=== PATIENT | female | born 1960 | race Two or more races ===

== ENCOUNTER 2016-04-02 14:25 | Inpatient (IN) | payer OTHER ==
[~2016-04-02] VITALS: Ht 149.9 cm; Wt 82.3 kg
[2016-04-02 15:00] LABS: Urine Bilirubin Negative (Negative); Urine Blood TRACE /uL (Negative); Urine Color Yellow (Yellow); Urine Glucose 4+ mg/dL (Normal); Urine Ketone 3+ (Negative); Urine Nitrite Negative (Negative); Urine RBC 5 /hpf (0 - 4); Urine Squamous Epithelial Cell FEW /hpf (<5); Urine Urobilinogen Normal (Negative); Urine pH 5.5 (5.0-8.0)
[2016-04-02 15:13] LABS: Hematocrit 34.3 % (36.0-46.0); Mean Corpuscular Hemoglobin 27.7 pg (28.0-32.0); Mean Corpuscular Volume 86.5 fL (80.0-100.0); Mean Platelet Volume 9.9 fL (7.4-10.4); Platelet Count (auto) 257 10^3/uL (140-450); Red Cell Distribution Width 14.2 % (11.6-16.0); SUSPECT VIEW TRANSMISSION; White Blood Cell 16.9 10^3/uL (4.4-10.8)
[2016-04-02 15:16] LABS: Metamyelocytes % 0; Myelocytes % 0; Promyelocytes % 0; Reactive Lymphocytes 0
[2016-04-02 15:31] LABS: Albumin 3.1 g/dL (3.4-5.0); Anion Gap 17 (5-15); Aspartate Aminotransferase 11 U/L (15-37); Blood Urea Nitrogen 14 mg/dL (7-18); Calcium 9.2 mg/dL (8.5-10.1); Carbon Dioxide 16 mmol/L (21-32); Chloride 99 mmol/L (98-107); GFR African American 68 mL/min; GFR Non-African American 56 mL/min; Glucose 246 mg/dL (74-106); Potassium 3.7 mmol/L (3.5-5.1); Sodium 132 mmol/L (136-145)
[2016-04-02 15:35] LABS: Alkaline Phosphatase 108 U/L (45-117); Bilirubin, Total 1.4 mg/dL (0.2-1.0); Total Protein 8.2 g/dL (6.4-8.2)
[2016-04-02 16:49] LABS: Platelet Estimate Adequate
[2016-04-02 16:50] LABS: Giant Platelets Few; RBC Morphology Normal
[2016-04-02] MEDS ORDERED: ONDANSETRON HCL 4 MG/2 ML VIAL IV ONE (17:15)
[2016-04-02] MEDS ORDERED: MORPHINE SULFATE 4 MG/ML SYRG IV ONE (17:15)
[2016-04-02] MEDS ORDERED: metroNIDAZOLE 500MG/100ML 100 ML IV ONE (17:15)
[2016-04-02] MEDS ORDERED: NITROFURANTOIN (MONO) 100 mg CAP PO ONE (17:15)
[2016-04-02] MEDS ORDERED: PIPERACILLIN-TAZOB 3.375GM 100 ML IV ONE (17:15)
[2016-04-02] MEDS ORDERED: MORPHINE SULF INJ 2 MG/ML SYRINGE 1ML IV PRN ×2 (18:00)
[2016-04-02] MEDS ORDERED: LORazepam 0.5 MG TAB PO PRN (18:00)
[2016-04-02] MEDS ORDERED: NITROGLYCERIN 0.4 MG SL TAB SL PRN (18:00)
[2016-04-02] MEDS ORDERED: PROMETHAZINE HCL 25 MG/ML 1ML IV PRN (18:00)
[2016-04-02] MEDS ORDERED: DEXTROSE (50%) 50ML SYRG IV PRN (18:00)
[2016-04-02 18:18] LABS: INR 1.05 (0.9-1.15); Prothrombin Time 10.8 sec (9.37-12.3)
[2016-04-02] MEDS: SODIUM CHLORIDE 0.9% 1,000 ML IV SCH (19:30)
[2016-04-02] MEDS: PIPERACILLIN-TAZOB 3.375GM 100 ML IV SCH ×2 (19:32→23:09)
[2016-04-02] MEDS: InsuLIN REG 1unit/0.01ml Soln (100units/ml) SC SCH (19:42)
[2016-04-02] MEDS: ACCU-CHEK COMFORT CURVE STRIP VI SCH (19:44)
[2016-04-02] MEDS: FAMOTIDINE 20 MG TAB PO SCH (21:53)
[2016-04-03] VITALS (8 sets, daily range): BP systolic 114–127; BP diastolic 59–76
[2016-04-03] MEDS: ACCU-CHEK COMFORT CURVE STRIP VI SCH ×6 (00:01→20:39)
[2016-04-03] MEDS: InsuLIN REG 1unit/0.01ml Soln (100units/ml) SC SCH ×6 (00:21→20:46)
[2016-04-03] MEDS: SODIUM CHLORIDE 0.9% 1,000 ML IV SCH ×3 (01:33→17:43)
[2016-04-03] MEDS: PIPERACILLIN-TAZOB 3.375GM 100 ML IV SCH ×3 (05:03→17:44)
[2016-04-03 06:26] LABS: Basophils # (auto) 0 uL; Basophils % (auto) 0.2 % (0.0-2.0); Eosinophils # (auto) 0 uL; Eosinophils % (auto) 0.2 % (0.0-7.0); Hematocrit 30.4 % (36.0-46.0); Hemoglobin 9.6 g/dL (12.2-16.2); Lymphocytes # (auto) 1.2 uL; Lymphocytes % (auto) 9.6 % (10.0-50.0); Mean Corpuscular Hemoglobin 27.3 pg (28.0-32.0); Mean Corpuscular Hgb Conc. 31.5 g/dL (32.0-36.0); Mean Corpuscular Volume 86.6 fL (80.0-100.0); Mean Platelet Volume 10.2 fL (7.4-10.4); Monocytes # (auto) 1.3 uL; Monocytes % (auto) 10.9 % (0.0-12.0); Neutrophils # (auto) 9.5 uL; Neutrophils % (auto) 79.1 % (37.0-80.0); Platelet Count (auto) 221 10^3/uL (140-450); Red Cell Distribution Width 14.3 % (11.6-16.0)
[2016-04-03 06:59] LABS: Albumin 2.6 g/dL (3.4-5.0); Bilirubin, Total 1.1 mg/dL (0.2-1.0); Calcium 8.9 mg/dL (8.5-10.1); Potassium 3.9 mmol/L (3.5-5.1); Total Protein 7.4 g/dL (6.4-8.2)
[2016-04-03] MEDS ORDERED: MIDAZOLAM HCL 1MG/1ML-2 ML VIAL ONE (08:00)
[2016-04-03] MEDS ORDERED: fentaNYL CITRATE 100 MCG/2 ML VL ONE (08:04)
[2016-04-03] MEDS ORDERED: METOCLOPRAMIDE HCL 5MG/ml INJ 2ml VIAL ONE (08:21)
[2016-04-03] MEDS ORDERED: PROPOFOL 10 MG/ML 20 ML IV ONE (08:21)
[2016-04-03] MEDS ORDERED: DEXAMETHASONE SOD PHOS 10MG/1ML VIAL INJ ONE (08:21)
[2016-04-03] MEDS ORDERED: LIDOCAINE HCL 2 %PF INJ 10ML AMP IJ ONE (08:21)
[2016-04-03] MEDS ORDERED: ONDANSETRON HCL 4 MG/2 ML VIAL ONE (08:21)
[2016-04-03] MEDS ORDERED: ePHEDrine SULFATE 50 MG/ML AMP IV PRN (09:00)
[2016-04-03] MEDS ORDERED: HYDROmorphone HCL 2 MG/ML VL IV PRN (09:00)
[2016-04-03] MEDS ORDERED: PROMETHAZINE HCL 25 MG/ML 1ML IM ONE (09:00)
[2016-04-03] MEDS ORDERED: hydrALAZINE HCL 20 MG/ML VL IV PRN (09:00)
[2016-04-03] MEDS ORDERED: FLUMAZENIL 0.1 MG/ML INJ 10ML MDV IV ONE (09:00)
[2016-04-03] MEDS ORDERED: METOCLOPRAMIDE HCL 5MG/ml INJ 2ml VIAL IV ONE (09:00)
[2016-04-03] MEDS ORDERED: NALOXONE HCL 0.4 MG/ML VIAL IV PRN (09:00)
[2016-04-03] MEDS ORDERED: ONDANSETRON HCL 4 MG/2 ML VIAL IV ONE (09:00)
[2016-04-03] MEDS ORDERED: KETOROLAC TROMETH 30 MG/ML 1ML VIAL IV ONE (09:00)
[2016-04-03] MEDS ORDERED: LABETALOL HCL 5 MG/ML 4ML SYRINGE IV PRN (09:00)
[2016-04-03] MEDS: FAMOTIDINE 20 MG TAB PO SCH ×2 (10:07→21:57)
[2016-04-03] MEDS: Boost Glucose Control 8 Ounces PO SCH (18:06)
[2016-04-03] MEDS ORDERED: DEXTROSE (50%) 50ML SYRG IV PRN ×3 (21:00)
[2016-04-04] MEDS ORDERED: InsuLIN REG 1unit/0.01ml Soln (100units/ml) SC SCH
[2016-04-04] MEDS ORDERED: ACCU-CHEK COMFORT CURVE STRIP VI SCH
[2016-04-04] MEDS: PIPERACILLIN-TAZOB 3.375GM 100 ML IV SCH ×4 (00:13→17:36)
[2016-04-04] MEDS: ACCU-CHEK COMFORT CURVE STRIP VI SCH ×8 (00:13→20:00)
[2016-04-04] MEDS: InsuLIN REG 1unit/0.01ml Soln (100units/ml) SC SCH ×8 (00:15→20:48)
[2016-04-04] MEDS: SODIUM CHLORIDE 0.9% 1,000 ML IV SCH ×4 (00:16→23:35)
[2016-04-04] MEDS: ACETAMINOPHEN 500 MG TAB PO PRN (04:15)
[2016-04-04 05:00] VITALS: BP 128/72
[2016-04-04 05:54] LABS: Basophils # (auto) 0 uL; Basophils % (auto) 0.1 % (0.0-2.0); Eosinophils # (auto) 0 uL; Hematocrit 30.3 % (36.0-46.0); Hemoglobin 9.5 g/dL (12.2-16.2); Lymphocytes # (auto) 0.8 uL; Lymphocytes % (auto) 7.3 % (10.0-50.0); Mean Corpuscular Hemoglobin 27.3 pg (28.0-32.0); Mean Corpuscular Hgb Conc. 31.4 g/dL (32.0-36.0); Mean Corpuscular Volume 87.1 fL (80.0-100.0); Mean Platelet Volume 10.5 fL (7.4-10.4); Monocytes # (auto) 0.9 uL; Monocytes % (auto) 7.6 % (0.0-12.0); Neutrophils # (auto) 9.7 uL; Platelet Count (auto) 253 10^3/uL (140-450); Red Cell Distribution Width 14.2 % (11.6-16.0); SUSPECT VIEW TRANSMISSION; White Blood Cell 11.5 10^3/uL (4.4-10.8)
[2016-04-04 06:06] LABS: Albumin 2.3 g/dL (3.4-5.0); BUN/Creatinine Ratio 27.8; Calcium 9.1 mg/dL (8.5-10.1); Potassium 3.9 mmol/L (3.5-5.1)
[2016-04-04 06:09] LABS: Bilirubin, Total 0.5 mg/dL (0.2-1.0); Total Protein 7.4 g/dL (6.4-8.2)
[2016-04-04 08:00] VITALS: BP 126/67
[2016-04-04] MEDS: Boost Glucose Control 8 Ounces PO SCH ×3 (08:26→17:37)
[2016-04-04] MEDS: FAMOTIDINE 20 MG TAB PO SCH ×2 (08:33→22:00)
[2016-04-04 08:36] VITALS: BP 126/67
[2016-04-04] MEDS ORDERED: DAPA1TAB7 PO (08:38)
[2016-04-04] MEDS ORDERED: PRAV20TA3 PO (08:38)
[2016-04-04] MEDS ORDERED: BENA40TA2 PO (08:38)
[2016-04-04] MEDS ORDERED: OMEG1CAP59 PO (08:38)
[2016-04-04] MEDS ORDERED: AMLO10TA2 PO (08:38)
[2016-04-04] MEDS ORDERED: INSLANTI SC (08:39)
[2016-04-04 13:00] VITALS: BP 122/72
[2016-04-04] MEDS ORDERED: LACTULOSE 20Gm/30ML SOLN PO PRN (15:45)
[2016-04-04 16:37] VITALS: BP 137/71
[2016-04-04] MEDS: metFORMIN HYDROCHLORIDE 500 MG TAB PO SCH (17:36)
[2016-04-04 22:00] VITALS: BP 117/73
[2016-04-04] MEDS: INSULIN DETEMIR(LEVEMIR) 1unit/0.01ml Soln (100units/ml) SC SCH (22:00)
[2016-04-04] MEDS: PRAVASTATIN SODIUM 20 MG TAB PO SCH (22:00)
[2016-04-05] MEDS: PIPERACILLIN-TAZOB 3.375GM 100 ML IV SCH ×3 (00:33→11:38)
[2016-04-05] MEDS: InsuLIN REG 1unit/0.01ml Soln (100units/ml) SC SCH ×6 (00:42→23:45)
[2016-04-05] MEDS: ACCU-CHEK COMFORT CURVE STRIP VI SCH ×7 (04:00→23:50)
[2016-04-05 05:00] VITALS: BP 125/83
[2016-04-05 06:17] LABS: Basophils # (auto) 0 uL; Basophils % (auto) 0.1 % (0.0-2.0); Eosinophils # (auto) 0.1 uL; Eosinophils % (auto) 0.6 % (0.0-7.0); Hematocrit 29.5 % (36.0-46.0); Hemoglobin 9.8 g/dL (12.2-16.2); Lymphocytes # (auto) 2.6 uL; Lymphocytes % (auto) 21.5 % (10.0-50.0); Mean Corpuscular Hemoglobin 28.3 pg (28.0-32.0); Mean Corpuscular Hgb Conc. 33.3 g/dL (32.0-36.0); Mean Corpuscular Volume 84.9 fL (80.0-100.0); Mean Platelet Volume 10.1 fL (7.4-10.4); Monocytes % (auto) 8.2 % (0.0-12.0); Neutrophils # (auto) 8.5 uL; Neutrophils % (auto) 69.6 % (37.0-80.0); Platelet Count (auto) 278 10^3/uL (140-450); Red Cell Distribution Width 14.5 % (11.6-16.0); White Blood Cell 12.2 10^3/uL (4.4-10.8)
[2016-04-05 06:49] LABS: Potassium 3.1 mmol/L (3.5-5.1)
[2016-04-05 06:53] LABS: Albumin 2.2 g/dL (3.4-5.0); BUN/Creatinine Ratio 33.7; Calcium 8.5 mg/dL (8.5-10.1)
[2016-04-05 06:56] LABS: Bilirubin, Total 0.3 mg/dL (0.2-1.0); Total Protein 6.9 g/dL (6.4-8.2)
[2016-04-05] MEDS: SODIUM CHLORIDE 0.9% 1,000 ML IV SCH ×3 (07:49→23:52)
[2016-04-05] MEDS: Boost Glucose Control 8 Ounces PO SCH ×3 (08:00→18:06)
[2016-04-05] MEDS: metFORMIN HYDROCHLORIDE 500 MG TAB PO SCH ×2 (08:30→18:29)
[2016-04-05] MEDS: ACETAMINOPHEN 500 MG TAB PO PRN (08:37)
[2016-04-05] MEDS: FAMOTIDINE 20 MG TAB PO SCH ×2 (08:37→21:11)
[2016-04-05 09:00] VITALS: BP 116/76
[2016-04-05] MEDS: HYDROcodone-ACET 5/325MG TAB PO PRN (10:44)
[2016-04-05 12:31] VITALS: BP 131/76
[2016-04-05] MEDS ORDERED: cefTRIAXone 1GM/50ML D5W 50 ML IV ONE (16:00)
[2016-04-05 16:54] VITALS: BP 133/80
[2016-04-05] MEDS: PRAVASTATIN SODIUM 20 MG TAB PO SCH (21:12)
[2016-04-05 21:40] VITALS: BP 134/72
[2016-04-05] MEDS: INSULIN DETEMIR(LEVEMIR) 1unit/0.01ml Soln (100units/ml) SC SCH (23:44)
[2016-04-06] MEDS: HYDROcodone-ACET 5/325MG TAB PO PRN ×2 (02:14→21:11)
[2016-04-06] MEDS: ACCU-CHEK COMFORT CURVE STRIP VI SCH ×5 (04:00→20:00)
[2016-04-06] MEDS: InsuLIN REG 1unit/0.01ml Soln (100units/ml) SC SCH ×6 (04:00→20:00)
[2016-04-06 04:38] VITALS: BP 145/75
[2016-04-06] MEDS: SODIUM CHLORIDE 0.9% 1,000 ML IV SCH ×3 (05:18→21:57)
[2016-04-06 08:00] VITALS: BP 146/76
[2016-04-06] MEDS: metFORMIN HYDROCHLORIDE 500 MG TAB PO SCH ×2 (08:49→17:48)
[2016-04-06] MEDS: FAMOTIDINE 20 MG TAB PO SCH ×2 (08:49→21:09)
[2016-04-06] MEDS: cefTRIAXone 1GM/50ML D5W 50 ML IV SCH (08:50)
[2016-04-06 09:00] VITALS: BP 146/76
[2016-04-06] MEDS: Boost Glucose Control 8 Ounces PO SCH ×3 (10:50→17:47)
[2016-04-06 12:40] VITALS: BP 137/74
[2016-04-06 16:31] VITALS: BP 137/69
[2016-04-06 19:15] LABS: Albumin 2.4 g/dL (3.4-5.0); BUN/Creatinine Ratio 13.3; Calcium 8.6 mg/dL (8.5-10.1); INR 0.99 (0.9-1.15); Partial Thromboplastin Time 26.8 sec (22.64-33.71); Potassium 3.4 mmol/L (3.5-5.1); Prothrombin Time 10.2 sec (9.37-12.3)
[2016-04-06 19:18] LABS: Bilirubin, Total 0.3 mg/dL (0.2-1.0); Total Protein 7.1 g/dL (6.4-8.2)
[2016-04-06] MEDS: PRAVASTATIN SODIUM 20 MG TAB PO SCH (21:09)
[2016-04-06] MEDS: TEMAZEPAM 15 MG CAP PO PRN (21:11)
[2016-04-06] MEDS: INSULIN DETEMIR(LEVEMIR) 1unit/0.01ml Soln (100units/ml) SC SCH (21:21)
[2016-04-06 21:55] VITALS: BP 130/66
[2016-04-07] VITALS (8 sets, daily range): BP systolic 132–156; BP diastolic 64–91
[2016-04-07] MEDS: InsuLIN REG 1unit/0.01ml Soln (100units/ml) SC SCH ×6 (04:00→20:17)
[2016-04-07] MEDS: ACCU-CHEK COMFORT CURVE STRIP VI SCH ×6 (04:00→20:08)
[2016-04-07] MEDS: SODIUM CHLORIDE 0.9% 1,000 ML IV SCH ×3 (04:43→21:53)
[2016-04-07 06:05] LABS: Basophils # (auto) 0 uL; Basophils % (auto) 0.3 % (0.0-2.0); Eosinophils # (auto) 0.3 uL; Eosinophils % (auto) 2.4 % (0.0-7.0); Hematocrit 28.1 % (36.0-46.0); Hemoglobin 9.4 g/dL (12.2-16.2); Lymphocytes # (auto) 2.7 uL; Lymphocytes % (auto) 23.5 % (10.0-50.0); Mean Corpuscular Hemoglobin 28.4 pg (28.0-32.0); Mean Corpuscular Hgb Conc. 33.6 g/dL (32.0-36.0); Mean Corpuscular Volume 84.6 fL (80.0-100.0); Mean Platelet Volume 9.3 fL (7.4-10.4); Monocytes # (auto) 1.2 uL; Monocytes % (auto) 10.7 % (0.0-12.0); Neutrophils # (auto) 7.3 uL; Neutrophils % (auto) 63.1 % (37.0-80.0); Platelet Count (auto) 288 10^3/uL (140-450); Red Cell Distribution Width 14.4 % (11.6-16.0); White Blood Cell 11.5 10^3/uL (4.4-10.8)
[2016-04-07 06:33] LABS: BUN/Creatinine Ratio 14.3; Bilirubin, Total 0.4 mg/dL (0.2-1.0); Calcium 8.3 mg/dL (8.5-10.1); Magnesium 1.9 mg/dL (1.6-2.6); Potassium 3.1 mmol/L (3.5-5.1); Total Protein 6.3 g/dL (6.4-8.2)
[2016-04-07] MEDS: Boost Glucose Control 8 Ounces PO SCH ×2 (08:00→12:00)
[2016-04-07] MEDS: metFORMIN HYDROCHLORIDE 500 MG TAB PO SCH ×2 (09:27→18:04)
[2016-04-07] MEDS: cefTRIAXone 1GM/50ML D5W 50 ML IV SCH (09:27)
[2016-04-07] MEDS: FAMOTIDINE 20 MG TAB PO SCH ×2 (09:27→21:52)
[2016-04-07] MEDS ORDERED: LIDOCAINE 2%HCL (LOCAL ANESTH.) INJ 20ML MDV ONE (11:52)
[2016-04-07] MEDS ORDERED: POTASSIUM CHL 20 Meq TABLET PO ONE (12:00)
[2016-04-07] MEDS ORDERED: MIDAZOLAM HCL 1MG/1ML-2 ML VIAL ONE (13:06)
[2016-04-07] MEDS ORDERED: fentaNYL CITRATE 100 MCG/2 ML VL ONE (13:07)
[2016-04-07] MEDS: PRO-STAT 64 30ML PO SCH (18:05)
[2016-04-07] MEDS: HYDROcodone-ACET 5/325MG TAB PO PRN (20:54)
[2016-04-07] MEDS: PRAVASTATIN SODIUM 20 MG TAB PO SCH (21:52)
[2016-04-07] MEDS: INSULIN DETEMIR(LEVEMIR) 1unit/0.01ml Soln (100units/ml) SC SCH (21:58)
[2016-04-08] MEDS: ACCU-CHEK COMFORT CURVE STRIP VI SCH ×6 (00:07→21:58)
[2016-04-08] MEDS: InsuLIN REG 1unit/0.01ml Soln (100units/ml) SC SCH ×6 (00:08→22:00)
[2016-04-08] MEDS: SODIUM CHLORIDE 0.9% 1,000 ML IV SCH ×3 (04:36→20:35)
[2016-04-08 05:00] VITALS: BP 145/78
[2016-04-08 05:31] LABS: Basophils # (auto) 0 uL; Basophils % (auto) 0.2 % (0.0-2.0); Eosinophils # (auto) 0.3 uL; Eosinophils % (auto) 3.3 % (0.0-7.0); Hematocrit 28.5 % (36.0-46.0); Hemoglobin 9.6 g/dL (12.2-16.2); Lymphocytes # (auto) 3.2 uL; Lymphocytes % (auto) 31.5 % (10.0-50.0); Mean Corpuscular Hemoglobin 28.5 pg (28.0-32.0); Mean Corpuscular Hgb Conc. 33.7 g/dL (32.0-36.0); Mean Corpuscular Volume 84.5 fL (80.0-100.0); Mean Platelet Volume 8.6 fL (7.4-10.4); Monocytes % (auto) 9.6 % (0.0-12.0); Neutrophils # (auto) 5.6 uL; Neutrophils % (auto) 55.4 % (37.0-80.0); Platelet Count (auto) 346 10^3/uL (140-450); Red Cell Distribution Width 14.4 % (11.6-16.0)
[2016-04-08 05:50] LABS: Potassium 3.7 mmol/L (3.5-5.1)
[2016-04-08 05:56] LABS: Albumin 2.1 g/dL (3.4-5.0); BUN/Creatinine Ratio 10.7; Calcium 8.3 mg/dL (8.5-10.1); Magnesium 1.8 mg/dL (1.6-2.6)
[2016-04-08 05:59] LABS: Bilirubin, Total 0.4 mg/dL (0.2-1.0); Total Protein 6.6 g/dL (6.4-8.2)
[2016-04-08] MEDS: PRO-STAT 64 30ML PO SCH ×2 (07:40→17:47)
[2016-04-08 09:20] VITALS: BP 128/57
[2016-04-08] MEDS: cefTRIAXone 1GM/50ML D5W 50 ML IV SCH (10:21)
[2016-04-08] MEDS: FAMOTIDINE 20 MG TAB PO SCH ×2 (10:21→21:58)
[2016-04-08] MEDS: ACETAMINOPHEN 500 MG TAB PO PRN (11:40)
[2016-04-08] MEDS: metFORMIN HYDROCHLORIDE 500 MG TAB PO SCH ×2 (12:54→17:47)
[2016-04-08 13:30] VITALS: BP 130/90
[2016-04-08 17:03] VITALS: BP 131/83
[2016-04-08] MEDS ORDERED: DEXTROSE (50%) 50ML SYRG IV PRN (19:45)
[2016-04-08 20:00] VITALS: BP 150/85
[2016-04-08] MEDS: PRAVASTATIN SODIUM 20 MG TAB PO SCH (21:57)
[2016-04-08] MEDS: TEMAZEPAM 15 MG CAP PO PRN (21:58)
[2016-04-08] MEDS: INSULIN DETEMIR(LEVEMIR) 1unit/0.01ml Soln (100units/ml) SC SCH (21:59)
[2016-04-08 22:00] VITALS: BP 150/85
[2016-04-08] MEDS ORDERED: ACCU-CHEK COMFORT CURVE STRIP VI SCH (22:00)
[2016-04-09] MEDS: ACETAMINOPHEN 500 MG TAB PO PRN (04:41)
[2016-04-09] MEDS: SODIUM CHLORIDE 0.9% 1,000 ML IV SCH ×3 (04:47→20:44)
[2016-04-09 05:14] VITALS: BP 145/84
[2016-04-09 06:20] LABS: Basophils # (auto) 0 uL; Basophils % (auto) 0.3 % (0.0-2.0); Eosinophils # (auto) 0.4 uL; Eosinophils % (auto) 4.2 % (0.0-7.0); Hematocrit 27.9 % (36.0-46.0); Hemoglobin 9.4 g/dL (12.2-16.2); Lymphocytes # (auto) 2.5 uL; Lymphocytes % (auto) 25.5 % (10.0-50.0); Mean Corpuscular Hemoglobin 28.4 pg (28.0-32.0); Mean Corpuscular Hgb Conc. 33.6 g/dL (32.0-36.0); Mean Corpuscular Volume 84.5 fL (80.0-100.0); Mean Platelet Volume 8.7 fL (7.4-10.4); Monocytes # (auto) 1.1 uL; Monocytes % (auto) 11.6 % (0.0-12.0); Neutrophils # (auto) 5.6 uL; Neutrophils % (auto) 58.4 % (37.0-80.0); Platelet Count (auto) 379 10^3/uL (140-450); Red Cell Distribution Width 14.3 % (11.6-16.0); White Blood Cell 9.6 10^3/uL (4.4-10.8)
[2016-04-09] MEDS: InsuLIN REG 1unit/0.01ml Soln (100units/ml) SC SCH ×4 (06:48→22:44)
[2016-04-09] MEDS: ACCU-CHEK COMFORT CURVE STRIP VI SCH ×4 (06:49→22:41)
[2016-04-09 06:58] LABS: Albumin 2.1 g/dL (3.4-5.0); BUN/Creatinine Ratio 13.5; Bilirubin, Total 0.4 mg/dL (0.2-1.0); Calcium 8.5 mg/dL (8.5-10.1); Phosphorus 3.7 mg/dL (2.5-4.90); Potassium 3.5 mmol/L (3.5-5.1); Total Protein 6.6 g/dL (6.4-8.2)
[2016-04-09] MEDS: metFORMIN HYDROCHLORIDE 500 MG TAB PO SCH ×2 (08:07→19:12)
[2016-04-09] MEDS: PRO-STAT 64 30ML PO SCH ×2 (08:07→18:03)
[2016-04-09 09:00] VITALS: BP 147/89
[2016-04-09] MEDS: FAMOTIDINE 20 MG TAB PO SCH ×2 (09:04→22:41)
[2016-04-09] MEDS: cefTRIAXone 1GM/50ML D5W 50 ML IV SCH (09:05)
[2016-04-09 12:00] VITALS: BP 164/95
[2016-04-09 17:00] VITALS: BP 142/94
[2016-04-09 22:00] VITALS: BP 140/71
[2016-04-09] MEDS: PRAVASTATIN SODIUM 20 MG TAB PO SCH (22:41)
[2016-04-09] MEDS: INSULIN DETEMIR(LEVEMIR) 1unit/0.01ml Soln (100units/ml) SC SCH (22:43)
[2016-04-10] MEDS: SODIUM CHLORIDE 0.9% 1,000 ML IV SCH ×2 (03:15→09:03)
[2016-04-10 05:00] VITALS: BP 153/85
[2016-04-10] MEDS: ACCU-CHEK COMFORT CURVE STRIP VI SCH ×2 (06:51→11:44)
[2016-04-10] MEDS: InsuLIN REG 1unit/0.01ml Soln (100units/ml) SC SCH ×2 (06:51→11:30)
[2016-04-10] MEDS: PRO-STAT 64 30ML PO SCH (08:00)
[2016-04-10] MEDS: metFORMIN HYDROCHLORIDE 500 MG TAB PO SCH (08:57)
[2016-04-10] MEDS: FAMOTIDINE 20 MG TAB PO SCH (08:57)
[2016-04-10] MEDS: cefTRIAXone 1GM/50ML D5W 50 ML IV SCH (08:57)
[2016-04-10 09:00] VITALS: BP 156/92
[2016-04-10 13:00] VITALS: BP 139/86
[2016-04-10 18:12] VITALS: BP 139/86
== END 2016-04-10 17:50 | disposition home or self-care (01) | DRG 871 ==
LOC: ER 14:25 → TELE 14:26 → TELE-WESTW 22:13 → WEST WING 04-04 02:04
PROVIDERS: ADMIT Internal Medicine; ATTEND Internal Medicine
PROC: 0T778DZ Dilation of Left Ureter with Intraluminal Device, Via Natural or Artificial Opening Endoscopic (ICD-10-PCS; principal; 2016-04-03 08:03)
PROC: 0T913ZX Drainage of Left Kidney, Percutaneous Approach, Diagnostic (ICD-10-PCS; 2016-04-07)
DX: A41.9 Sepsis, unspecified organism (principal); E43 Unspecified severe protein-calorie malnutrition; N17.0 Acute kidney failure with tubular necrosis; N13.2 Hydronephrosis with renal and ureteral calculous obstruction; E87.1 Hypo-osmolality and hyponatremia; N39.0 Urinary tract infection, site not specified; E11.21 Type 2 diabetes mellitus with diabetic nephropathy; E78.5 Hyperlipidemia, unspecified; R16.0 Hepatomegaly, not elsewhere classified; I10 Essential (primary) hypertension; K76.0 Fatty (change of) liver, not elsewhere classified; B96.20 Unspecified Escherichia coli [E. coli] as the cause of diseases classified elsewhere; D50.9 Iron deficiency anemia, unspecified; E11.65 Type 2 diabetes mellitus with hyperglycemia; E66.9 Obesity, unspecified; Z68.36 Body mass index [BMI] 36.0-36.9, adult; Z83.3 Family history of diabetes mellitus; Z80.0 Family history of malignant neoplasm of digestive organs; Z80.3 Family history of malignant neoplasm of breast; Z88.1 Allergy status to other antibiotic agents; Z79.899 Other long term (current) drug therapy
CPT/HCPCS: 36415; 71010; 74000; 74176; 75989; 76000; 80053; 81001; 82270; 82962; 83036; 83540; 83550; 83605; 83735; 84100; 84484; 85007; 85025; 85027; 85610; 85730; 87040; 87077; 87086; 87088; 87186; 87205; 93005; 96365; 96375; C1729; J0696; J1100; J1815; J2250; J2405; J2543; J2704; J3490